=== PATIENT | female | born 1950 | race Caucasian/White ===

== ENCOUNTER → 2016-10-07 | Outpatient (CLI) | payer BC ==
[~2016-10-07] MED LIST: ALBU1AER9 INH; ASPI81TA28 PO; CLTP PO; DYZ PO; FENO160T PO; FSM70 PO; GLCSC750600 PO; MECL-72 PO; MELO15TA3 PO; MULT-506 PO; SIMV20TA2 PO
[2016-10-07 15:12] LABS: BLOOD UREA NITROGEN 14 mg/dl (7-18); CREATININE 0.91 mg/dl (0.60-1.20)
== END | disposition home or self-care (01) ==
LOC: C.LAB 12:58
PROVIDERS: ATTEND Physician Assistant
DX: H90.A31 Mixed conductive and sensorineural hearing loss, unilateral, right ear with restricted hearing on the contralateral side (principal)

== ENCOUNTER → 2016-10-16 | Outpatient (CLI) | payer BC ==
[2016-10-16 08:17] LABS: BLOOD UREA NITROGEN 18 mg/dl (7-18); BUN/CREATININE RATIO 18.8 (10-20); CALCIUM 9.8 mg/dl (8.5-10.1); CARBON DIOXIDE 29 mmol/L (21-32); CHLORIDE 106 mmol/L (98-107); CREATININE 0.98 mg/dl (0.60-1.20); GLUCOSE 142 mg/dl (70-99); POTASSIUM 3.7 mmol/L (3.5-5.1); SODIUM 142 mmol/L (136-145)
[2016-10-16 08:38] LABS: PROLACTIN 7.83 ng/mL
[2016-10-20 22:21] LABS: ESTRADIOL 3 pg/mL; ILGF1 Z SCORE FEMALE 0.4 SD (-2.0 - +2.0); INSULIN LIKE GROWTH FACTOR-I 138 ng/mL (41-279)
== END | disposition home or self-care (01) ==
LOC: C.LAB 07:14
PROVIDERS: ATTEND Physician Assistant
DX: R90.89 Other abnormal findings on diagnostic imaging of central nervous system (principal)

== ENCOUNTER → 2016-10-25 | Outpatient (CLI) | payer BC ==
--- NOTE | 2016-10-26 07:41 | MAMMOGRAPHY REPORT ---
BILATERAL DIGITAL SCREENING MAMMOGRAM TOMOSYNTHESIS WITH CAD: 10/25/2016 CLINICAL HISTORY: Routine screening. Patient has no complaints. TECHNIQUE: Breast tomosynthesis in addition to standard 2D mammography was performed. Current study was also evaluated with a Computer Aided Detection (CAD) system. COMPARISON: Comparison is made to exams dated: 10/22/2015 mammogram, 10/17/2014 mammogram, 09/26/2013 ma mmogram, 09/25/2012 mammogram, 09/14/2011 mammogram, and 10/09/2010 mammogram - [facility] er. BREAST COMPOSITION: There are scattered areas of fibroglandular density in both breasts. FINDINGS: A linear scar marker overlies the right upper outer posterior breast. There are a few stab le benign-appearing punctate microcalcifications in the lateral, posterior right breast, unchanged da ting back to the 10/08/2009, therefore likely benign. No new suspicious mass, architectural distorti on or cluster of microcalcifications is seen. IMPRESSION: ACR BI-RADS CATEGORY 1: NEGATIVE There is no mammographic evidence of malignancy. A 1 year screening mammogram is recommended. The pa tient will receive written notification of the results. Approximately 10% of breast cancers are not detected with mammography. A negative mammographic report should not delay biopsy if a clinically suggestive mass is present. Kandy Linares M.D. ay/:10/25/2016 18:11:59 Quality Systems Technician: Chaya SNYDER(Enedina)(Betina)([place]), [facility] letter sent: Normal 1/2 BI-RADS Code: ACR BI-RADS Category 1: Negative
== END | disposition home or self-care (01) ==
LOC: C.MAMM 13:47
PROVIDERS: ATTEND Obstetrics & Gynecology
DX: Z12.31 Encounter for screening mammogram for malignant neoplasm of breast (principal); Z85.3 Personal history of malignant neoplasm of breast

== ENCOUNTER → 2017-08-10 | Outpatient (CLI) | payer BC ==
--- NOTE | 2017-08-10 09:23 | DIAGNOSTIC IMAGING REPORT ---
ABDOMEN COMPLETE (US) CLINICAL HISTORY: 67 years-old Female presenting with R10.9,K21.9. TECHNIQUE: Real-time grayscale and limited color Doppler ultrasound imaging of the abdomen was performed. COMPARISON: None. FINDINGS: Pancreas: Largely obscured due to overlying bowel gas. Abdominal pain, right upper quadrant lump Liver: Normal echogenicity and echotexture. The liver measures 18 cm in maximal sagittal dimension. No sonographic evidence of hepatic mass. Main portal vein patent with normal directional flow. Biliary: No intrahepatic biliary ductal dilatation. Common bile duct measures up to 3 mm in diameter. Gallbladder: Gallstones without evidence of gallbladder distention, wall thickening, or pericholecystic fluid or inflammatory change. Spleen: Normal in echogenicity and size, measuring 12.2 cm in length. Kidneys: Normal in size and echogenicity. Right kidney measures 12.0 cm, and left kidney measures 13.2 cm. Mild right pelviectasis or an extrarenal pelvis. No hydronephrosis. Vasculature: Limited visualization of the IVC and abdominal aorta normal. Ascites: None. Other: At the site of clinical interest, no sonographic abnormality is detected. IMPRESSION: 1. No sonographic abnormality at the site of clinical interest. 2. Cholelithiasis without evidence of cholecystitis. 3. No other significant sonographic abnormality in the abdomen. Electronically signed by: Huan Mejia M.D. 08/10/2017 9:22 AM Dictated Date/Time: 08/10/2017 9:19 AM
== END | disposition home or self-care (01) ==
LOC: C.ULTR 07:59
PROVIDERS: ATTEND Family Medicine
DX: R10.9 Unspecified abdominal pain (principal); K21.9 Gastro-esophageal reflux disease without esophagitis; K80.20 Calculus of gallbladder without cholecystitis without obstruction

== ENCOUNTER → 2017-11-11 | Outpatient (CLI) | payer BC ==
--- NOTE | 2017-11-14 15:11 | MAMMOGRAPHY REPORT ---
BILATERAL DIGITAL SCREENING MAMMOGRAM TOMOSYNTHESIS WITH CAD: 11/11/2017 CLINICAL HISTORY: Asymptomatic. Personal history of breast cancer. TECHNIQUE: The study was acquired using full field digital technology and interpreted from soft copy. Breast tomosynthesis in addition to standard 2D mammography was performed. Current study was also ev aluated with a Computer Aided Detection (CAD) system. COMPARISON: Comparison is made to exams dated: 10/25/2016 mammogram, 10/22/2015 mammogram, 10/17/2014 ma mmogram, 09/26/2013 mammogram, 09/25/2012 mammogram, and 10/09/2010 mammogram - [facility]. BREAST COMPOSITION: There are scattered areas of fibroglandular density in both breasts. FINDINGS: No suspicious masses, calcifications, or areas of architectural distortion are noted in either breast . There has been no significant interval change compared to prior exams. There are stable postsurgic al changes in the right upper outer quadrant from prior lobectomy. Punctate benign appearing calcifi cations in the right lateral breast are stable compared to multiple prior exams dating back to at [facility] the 2009 exam and are therefore considered benign given long-term stability. Other scattered bila teral benign-appearing calcifications are also stable. IMPRESSION: ACR BI-RADS CATEGORY 2: BENIGN There is no mammographic evidence of malignancy. A 1 year screening mammogram is recommended.( [id number]) The patient will receive written notification of the results. Some breast cancers are not detected with mammography. A negative mammographic report should not yudith y biopsy if a clinically suggestive mass is present. Hilaria Fairchild M.D. ah/:11/11/2017 15:10:53 Electric Relay Tester: Ann-Marie Kwong, [facility] letter sent: Normal 1/2 BI-RADS Code: ACR BI-RADS Category 2: Benign
== END ==
LOC: C.MAMM 13:09
PROVIDERS: ATTEND Obstetrics & Gynecology
DX: Z12.31 Encounter for screening mammogram for malignant neoplasm of breast (principal)

== ENCOUNTER → 2017-11-11 | Outpatient (CLI) | payer BC ==
[2017-11-11 15:07] LABS: BLOOD UREA NITROGEN 12 mg/dl (7-18); CREATININE 1.02 mg/dl (0.60-1.20)
== END ==
LOC: C.LAB1850 13:33
PROVIDERS: ATTEND Psychiatry & Neurology Neurology
DX: E23.6 Other disorders of pituitary gland (principal)